=== PATIENT | female | born 1980 | race Caucasian/White ===

== ENCOUNTER 2017-10-06 18:46 | Emergency (ER) | payer MEDICAID ==
--- NOTE | 2017-10-06 19:34 | EDM.PDOC ---
ED HPI GENERAL MEDICAL PROBLEM - General Chief Complaint: General Stated Complaint: back pain Time Seen by Provider: 10/06/17 19:25 Source of Information: Reports: Patient, Family, RN History Limitations: Reports: No Limitations - History of Present Illness INITIAL COMMENTS - FREE TEXT/NARRATIVE: 37 yr female presents with upper back pain and numbness. States she takes medication for low back pain. Pt sitting with HOB elevated in no acute distress. States she fell and hurt her upper back at home. Onset: Today lower back Pain Score (Numeric/FACES): 8 - Related Data Allergies Allergy/AdvReac Type Severity Reaction Status Date / Time latex Allergy Itching Verified 10/06/17 19:35 morphine Allergy Nausea and Verified 10/06/17 19:35 Vomiting Home Meds: Home Meds Albuterol [Proventil HFA] 200 puff INH Q2H 10/06/17 [History] Baclofen 10 mg PO TID 10/06/17 [History] Cyanocobalamin (Vitamin B-12) [Vitamin B-12] 1,000 mcg PO DAILY 10/06/17 [ History] DULoxetine [Cymbalta] 30 mg PO ACBREAKFAST 10/06/17 [History] DULoxetine [Cymbalta] 60 mg PO BEDTIME 10/06/17 [History] Ferrous Sulfate [Iron] 325 mg PO DAILY 10/06/17 [History] Gabapentin [Neurontin] 900 mg PO QID 10/06/17 [History] Mv-Min/Iron/Folic/Calcium/Vitk [Women's Daily Formula Tablet] 1 each PO DAILY [History] hydrOXYzine HCl [Vistaril] 50 mg PO DAILY 10/06/17 [History] oxyCODONE 5 mg PO ASDIRECTED PRN 10/06/17 [History] ED ROS GENERAL - Review of Systems Review Of Systems: See Below Constitutional: Reports: Weakness HEENT: Reports: No Symptoms Respiratory: Reports: No Symptoms Cardiovascular: Reports: No Symptoms GI/Abdominal: Reports: No Symptoms, Other (BM this am, hx gastric bypass) : Reports: Other (hx hysterectomy) Musculoskeletal: Reports: Back Pain, Leg Pain Skin: Reports: No Symptoms Neurological: Reports: Dizziness, Weakness ED EXAM, GENERAL - Physical Exam Exam: See Below Exam Limited By: No Limitations General Appearance: Alert, No Apparent Distress Nose: Normal Inspection Throat/Mouth: Normal Lips Head: Atraumatic, Normocephalic Neck: Supple, Non-Tender Respiratory/Chest: No Respiratory Distress, Lungs Clear Cardiovascular: Regular Rate, Rhythm, No Edema GI/Abdominal: Normal Bowel Sounds, Soft, Non-Tender Back Exam: Paraspinal Tenderness Extremities: Normal Inspection, No Pedal Edema Neurological: Alert, Oriented Psychiatric: Normal Affect, Normal Mood Skin Exam: Warm, Dry, Normal Color Lymphatic: No Adenopathy Course - Vital Signs Last Recorded V/S: Last Vital Signs Temp 98.2 F 10/06/17 19:36 Pulse 93 10/06/17 19:36 Resp 20 10/06/17 19:36 BP 97/56 L 10/06/17 19:36 Pulse Ox 100 10/06/17 19:36 - Orders/Labs/Meds Labs: Laboratory Tests 10/06/17 10/06/17 10/06/17 Range/Units 19:35 19:35 19:35 WBC 7.9 D (4.0-11.0) K/uL RBC 3.92 (3.80-5.80) M/uL Hgb 8.9 L (11.5-16.5) g/dL Hct 29.2 L (37.0-47.0) % MCV 75 L (76-96) fL MCH 22.7 L (27.0-32.0) pg MCHC 30.5 L (31.0-35.0) g/dL RDW 17.7 H (11.0-16.0) % Plt Count 429 (150-500) K/uL MPV 8.9 (6.0-10.0) fL Neut % (Auto) 55.4 (45.0-70.0) % Lymph % (Auto) 33.4 (20.0-40.0) % Mcintosh % (Auto) 8.6 (3.0-10.0) % Eos % (Auto) 2.3 (1.0-5.0) % Baso % (Auto) 0.3 (0.0-0.5) % Neut # (Auto) 4.38 (2.00-7.50) K/uL Lymph # (Auto) 2.64 (1.50-4.00) K/uL Mcintosh # (Auto) 0.68 (0.20-0.80) K/uL Eos # (Auto) 0.18 (0.04-0.40) K/uL Baso # (Auto) 0.02 (0.02-0.10) K/uL Sodium 144 (136-145) mmol/L Potassium 3.9 (3.5-5.1) mmol/L Chloride 109 H (98-107) mmol/L Carbon Dioxide 25.6 (21.0-32.0) mmol/L Anion Gap 13.3 (5.0-15.0) mmol/L BUN 17 D (8-26) mg/dL Creatinine 0.57 (0.55-1.02) mg/dL Est Cr Clr Drug Dosing 119.24 mL/min Estimated GFR (MDRD) > 60 (>60) MLS/MIN BUN/Creatinine Ratio 29.8 H (6-25) Glucose 104 H (74-100) mg/dL Calcium 8.5 (8.5-10.1) mg/dL Total Bilirubin 0.1 D (0.0-1.0) mg/dL AST 24 (15-37) U/L ALT 25 (12-78) U/L Alkaline Phosphatase 93 (46-116) U/L Total Protein 6.8 (6.4-8.2) g/dL Albumin 3.4 (3.4-5.0) g/dL Globulin 3.4 (2.2-4.2) g/dL Albumin/Globulin Ratio 1.0 (0.8-2.0) TSH, Ultra Sensitive 0.548 D (0.358-3.740) uIU/mL - Re-Assessments/Exams Free Text/Narrative Re-Assessment/Exam: 10/06/17 20:22 Review of lab results. low hgb noted and reviewed with pt. Recommend rest, hydration, change position slowly, be aware of dizziness, use heat/ice to back for comfort. Will give Toradol 30 mg IM for relief of pain. Pt to follow-up with PCP tomorrow for pain. She has met with a neurosurgeon and is expecting spinal fusion. She does have iron, B12, and folic acid and multi-vitamin at home. Continue with these to build up blood before surgery. 10/06/17 20:28 Results of MRI noted and reviewed with pt. Degenerative disc disease noted. D.ischarge to home, ambulatory Departure - Departure Time of Disposition: 20:29 Disposition: Home, Self-Care 01 Condition: Good Clinical Impression: Pain - Discharge Information Referrals: PCP,None [Primary Care Provider] - Forms: ED Department Discharge
[2017-10-06] MEDS ORDERED: Ketorolac 30 MG/ML SDV ONE (20:25)
== END 2017-10-06 20:29 | disposition home or self-care (01) ==
LOC: LB.ED 18:46
DX: M54.6 Pain in thoracic spine (principal); M54.5 Low back pain; Z79.899 Other long term (current) drug therapy; Z88.5 Allergy status to narcotic agent; Z91.040 Latex allergy status; W19.XXXA Unspecified fall, initial encounter; Y92.009 Unspecified place in unspecified non-institutional (private) residence as the place of occurrence of the external cause
CPT/HCPCS: 36415; 80053; 84443; 85025; 99282; 99283; J1885

== ENCOUNTER 2017-10-08 19:09 | Emergency (ER) | payer MEDICAID ==
[2017-10-08] MEDS ORDERED: HYDROmorphone 2 MG/ML Syringe IVPUSH PRN (20:14)
[2017-10-08] MEDS ORDERED: Ketorolac 30 MG/ML SDV IVPUSH ONE (20:15)
--- NOTE | 2017-10-08 21:04 | EDM.PDOC ---
ED HPI GENERAL MEDICAL PROBLEM - General Chief Complaint: General Stated Complaint: BACK PAIN Time Seen by Provider: 10/08/17 19:20 Source of Information: Reports: Patient History Limitations: Reports: No Limitations - History of Present Illness INITIAL COMMENTS - FREE TEXT/NARRATIVE: According to patient she claims that she has been having low back pain for past 1 wk now. Pain is all over her lower back . She claims that she is numb from her waist all the way down to the right foot. She claims this has been going on for 1 wk. She is from around [place] and her PCP and her neuro surgeon are in [place]. She claims that she had incontinence of urine few weeks ago and she is not sure why., but now feels fine.She did get MRI done on 10/05/17 and was seen in the emergency room here for the same symptoms. She was given toradol and that i not helping. Her primary care provider has her on oxycodone 5mg 3-4 times daily and it is not helping her. She has a copy of her Lumbar MRI and claims her MRI has been seen by 3 neurosurgeons in [place] and they all have recommended surgery for her. Duration: Week(s): (1wk ) Treatments DEEP SEA DIVER: Reports: Acetaminophen - Related Data Allergies Allergy/AdvReac Type Severity Reaction Status Date / Time diphenhydramine Allergy Seizure Verified 10/08/17 19:55 [From Benadryl] latex Allergy Itching Verified 10/08/17 19:54 morphine Allergy Nausea and Verified 10/08/17 19:54 Vomiting Home Meds: Home Meds Albuterol [Proventil HFA] 200 puff INH Q2H 10/06/17 [History] Baclofen 10 mg PO TID 10/06/17 [History] Cyanocobalamin (Vitamin B-12) [Vitamin B-12] 1,000 mcg PO DAILY 10/06/17 [ History] Ferrous Sulfate [Iron] 325 mg PO DAILY 10/06/17 [History] Gabapentin [Neurontin] 900 mg PO QID 10/06/17 [History] Mv-Min/Iron/Folic/Calcium/Vitk [Women's Daily Formula Tablet] 1 each PO DAILY [History] hydrOXYzine HCl [Vistaril] 50 mg PO DAILY 10/06/17 [History] oxyCODONE 5 mg PO ASDIRECTED PRN 10/06/17 [History] Past Medical History Respiratory History: Reports: Asthma Gastrointestinal History: Reports: Bowel Obstruction Musculoskeletal History: Reports: Back Pain, Chronic Psychiatric History: Reports: Anxiety - Past Surgical History Respiratory Surgical History: Reports: None GI Surgical History: Reports: Bariatric Procedure, Cholecystectomy Female Surgical History: Reports: Section, Hysterectomy, Oophorectomy, Tubal Ligation Musculoskeletal Surgical History: Reports: Other (See Below) Other Musculoskeletal Surgeries/Procedures:: Screws in her (R) ankle and mark in her (R) knee ED ROS GENERAL - Review of Systems Review Of Systems: See Below Constitutional: Denies: Fever, Chills HEENT: Denies: Rhinitis, Sinus Problem, Throat Pain Respiratory: Denies: Shortness of Breath, Wheezing, Cough, Sputum Cardiovascular: Denies: Chest Pain, Lightheadedness GI/Abdominal: Denies: Abdominal Pain, Nausea, Vomiting : Denies: Dysuria, Flank Pain Musculoskeletal: Reports: Back Pain. Denies: Shoulder Pain, Joint Pain, Joint Swelling Skin: Denies: Pruritis, Rash Neurological: Denies: Confusion, Dizziness, Seizure, Difficulty Walking ED EXAM, GENERAL - Physical Exam Exam: See Below Exam Limited By: No Limitations General Appearance: Alert, WD/WN, No Apparent Distress, Other (Pt is over- reactive to pain) Eye Exam: Bilateral Eye: EOMI, PERRL Ears: Normal External Exam, Normal Canal, Hearing Grossly Normal, Normal TMs Ear Exam: Bilateral Ear: Auricle Normal, Canal Normal, TM normal Nose: Normal Inspection, Normal Mucosa, No Blood Throat/Mouth: Normal Inspection, Normal Lips, Normal Teeth, Normal Gums, Normal Oropharynx, Normal Voice, No Airway Compromise Head: Atraumatic, Normocephalic Neck: Normal Inspection, Supple, Non-Tender, Full Range of Motion Respiratory/Chest: No Respiratory Distress, Lungs Clear, Normal Breath Sounds, No Accessory Muscle Use, Chest Non-Tender Cardiovascular: Normal Peripheral Pulses, Regular Rate, Rhythm, No Edema, No Gallop, No JVD, No Murmur, No Rub Back Exam: Normal Inspection, Full Range of Motion, Paraspinal Tenderness (all over the lumbar region, exaggerated pain response even to touch.), Vertebral Tenderness (tender all over spinous). No: CVA Tenderness (R), CVA Tenderness (L ) Course - Vital Signs Text/Narrative:: Pt's MRi of the lumbar spine degenerative disc disease. there is neuronal foraminal stenosis at different level. there is no nerve entrapment or compression seen. But her neurosurgeon has told her that she has nerve compression( which might be true, per her neuro surgeon). On clinical exam she is able to stand up and walk. she has good strength in her great toe flexion and extension. hard to evaluate reflexes due to tense feeling of the lower extremity muscles. Pt claims she is on oxycodone and it is not helping. She receive Dilaudid 1mgg and toradol 30mg IM. I have advised patient to alternate her oxycodone with tylenol, 650mg every 4 hrs. If she simpson develop difficulty walking, saddle numbness or incontinence of urine or stool needs to come back to emergency room. Other ritter advised to followup with her primary care physician and her neurosurgeon on wednesday for futher care of her tawnya pain. Pt understand and agrees to the plan. Last Recorded V/S: Last Vital Signs Temp 98.1 F 10/08/17 19:50 Pulse 97 10/08/17 19:50 Resp 12 10/08/17 19:50 BP 122/71 10/08/17 19:50 Pulse Ox 100 10/08/17 19:50 - Orders/Labs/Meds Orders: Active Orders 24 hr Category Date Time Status HYDROmorphone [Dilaudid] Med 10/08/17 20:14 Active 1 mg IVPUSH Q2H PRN Medication Orders Hydromorphone HCl (Dilaudid) 1 mg IVPUSH Q2H PRN PRN Reason: PAIN Last Admin: 10/08/17 20:23 Dose: 1 mg Meds: Medications Generic Name Dose Route Start Last Admin Trade Name Freq PRN Reason Stop Dose Admin Hydromorphone HCl 1 mg 10/08/17 20:14 10/08/17 20:23 Dilaudid IVPUSH 1 mg Q2H PRN Administration PAIN Discontinued Medications Generic Name Dose Route Start Last Admin Trade Name Freq PRN Reason Stop Dose Admin Ketorolac Tromethamine 30 mg 10/08/17 20:15 10/08/17 20:23 Toradol IVPUSH 10/08/17 20:16 30 mg ONETIME ONE Administration Departure - Departure Time of Disposition: 19:30 Disposition: Home, Self-Care 01 Condition: Fair Clinical Impression: Degenerative arthritis of lumbar spine - Discharge Information Instructions: Back Pain, Adult Forms: ED Department Discharge Additional Instructions: Follow up with your primary care provider and neurosurgeon on Wednesday. Alternate Tylenol 650 mg and oxycodone every 4 hours as needed for pain. Use intermittent heat to the back. If you being to have incontinence of stool or urine return to the emergency room immediately. - Problem List & Annotations (1) Degenerative arthritis of lumbar spine Status: Acute Current Visit: Yes - Problem List Review Problem List Initiated/Reviewed/Updated: Yes - My Orders Last 24 Hours: My Active Orders 10/08/17 20:14 HYDROmorphone [Dilaudid] 1 mg IVPUSH Q2H PRN - Assessment/Plan Last 24 Hours: My Active Orders 10/08/17 20:14 HYDROmorphone [Dilaudid] 1 mg IVPUSH Q2H PRN Assessment:: Lumbar DSD Plan: Pt's MRi of the lumbar spine degenerative disc disease. there is neuronal foraminal stenosis at different level. there is no nerve entrapment or compression seen. But her neurosurgeon has told her that she has nerve compression( which might be true, per her neuro surgeon). On clinical exam she is able to stand up and walk. she has good strength in her great toe flexion and extension. hard to evaluate reflexes due to tense feeling of the lower extremity muscles. Pt claims she is on oxycodone and it is not helping. She receive Dilaudid 1mgg and toradol 30mg IM. I have advised patient to alternate her oxycodone with tylenol, 650mg every 4 hrs. If she simpson develop difficulty walking, saddle numbness or incontinence of urine or stool needs to come back to emergency room. Other ritter advised to followup with her primary care physician and her neurosurgeon on wednesday for futher care of her tawnya pain. Pt understand and agrees to the plan.
== END 2017-10-08 20:35 | disposition home or self-care (01) ==
LOC: LB.ED 19:09
DX: M47.816 Spondylosis without myelopathy or radiculopathy, lumbar region (principal); Z88.5 Allergy status to narcotic agent; Z88.8 Allergy status to other drugs, medicaments and biological substances; Z79.899 Other long term (current) drug therapy
CPT/HCPCS: 96374; 96375; 99283; J1170; J1885; 99284

== ENCOUNTER 2017-11-19 00:15 | Emergency (ER) | payer MEDICAID ==
[2017-11-19] MEDS ORDERED: HYDROmorphone 2 MG/ML Syringe IVPUSH ONE (00:48)
[2017-11-19] MEDS ORDERED: HYDROmorphone 2 MG/ML Syringe ONE (01:05)
--- NOTE | 2017-11-19 09:32 | ER ---
HISTORY OF PRESENT ILLNESS: 37-year-old female here with her with complaints of chest pain from the midsternal area that seems to radiate back between the shoulder blades. The patient states it started yesterday. It seems to be slowly getting worse. She has not been coughing. She denies any falls or injuries. She has not been sick. She rates the pain at 7 or 8/10. She states it feels the best when she sits up and holds her knees against her chest with her arms. The patient does have history of fibromyalgia. She is also status post gastric bypass and has had some issues with being anemic. OBJECTIVE: GENERAL APPEARANCE: The patient is awake and alert, in no obvious distress. VITAL SIGNS: Reviewed. They are normal. HEENT: Oral mucous membranes are moist. Tonsils not enlarged or injected. Pharynx not inflamed. NECK: Supple. LUNGS: Clear. Deep breathing does cause some mild chest discomfort, both anterior and posteriorly. I can reproduce pain pushing on the posterior chest wall between the shoulder blades as well. CARDIAC: Heart sounds distinct. S1, S2 present. Regular rate. No murmurs. SKIN: Warm and dry. LABORATORY DATA AND X-RAY: CBC shows a hemoglobin of 8.5, which is just slightly less than her most recent hemoglobin. The patient states she has not been doing very good at taking her supplemental iron tablet. CMP is unremarkable. Troponin is normal. EKG is obtained and is normal. Chest CT is negative. DIAGNOSES: 1. Pleuritic chest pain. 2. Secondary diagnosis, anemia, which I believe is chronic in nature. TREATMENT PLAN: The patient was given Dilaudid 1 mg IV here in the emergency room and I brought her pain down to about a 4/10. She is comfortable. We will give her a few Codorus tablets to take as needed. I do want the patient to follow up in the clinic early next week for recheck. She states she really does not have a primary care provider. I advised patient to establish care with a primary care provider. She does see a neurologist in [place], Dr. Campbell for other issues and I want the patient to increase her ferrous sulfate to 2 or 3 times a day at this point. The patient has no further questions. CRS/MODL /[id number]
--- NOTE | 2017-11-22 22:39 | CT ---
DATE OF SERVICE: 11/19/2017 CLINICAL DATA: Chest pain. ENHANCED CHEST CT: Multislice acquisition through the chest with IV contrast was performed. No priors. No evidence of PE. No pneumothorax. No pleural effusions. No aortic aneurysm or dissection. The lungs are clear. The heart size is normal. No significant pericardial effusion. No hilar or mediastinal adenopathy. The patient is status post prior cholecystectomy. There are also surgical changes involving the stomach. IMPRESSION: No acute abnormalities. [id number] [facility]
== END 2017-11-19 02:24 | disposition home or self-care (01) ==
LOC: LB.ED 00:15
DX: R07.81 Pleurodynia (principal); D64.9 Anemia, unspecified; Z98.84 Bariatric surgery status
CPT/HCPCS: 71260; 80053; 82150; 83690; 84484; 85025; 93005; 96374; 99285; J1170; 99284

== ENCOUNTER 2018-07-22 12:37 | Emergency (ER) | payer MEDICAID ==
[2018-07-22] MEDS ORDERED: Lactated Ringers 1,000 ML IV ONE (12:55)
--- NOTE | 2018-07-22 14:43 | EDM.PDOC ---
ED HPI GENERAL MEDICAL PROBLEM - General Stated Complaint: PASSED OUT Time Seen by Provider: 07/22/18 12:55 Source of Information: Reports: Patient History Limitations: Reports: No Limitations - History of Present Illness INITIAL COMMENTS - FREE TEXT/NARRATIVE: This is a 38yo who passed out today about 1045 for 15-20s per the significant other. She has passed out in the past with prior diagnoses of anemia and hypoglycemia. She has had prior workup and does see a neurologist. Patient denies current complaints but does feel nauseated. She states she has felt this way since yesterday morning. She has been working a lot more and had breakfast at 11 am after her episode and did not have anything to eat since last night. Onset: Sudden Duration: Resolved Prior to Arrival Location: Reports: Generalized - Related Data Allergies Allergy/AdvReac Type Severity Reaction Status Date / Time diphenhydramine Allergy Seizure Verified 07/22/18 14:03 [From Benadryl] ibuprofen Allergy Vomiting Verified 07/22/18 14:03 latex Allergy Itching Verified 07/22/18 14:03 morphine Allergy Nausea and Verified 07/22/18 14:03 Vomiting Home Meds: Home Meds Albuterol [Proventil HFA] 200 puff INH Q2H PRN 10/06/17 [History] Baclofen 10 mg PO TID 10/06/17 [History] Cyanocobalamin (Vitamin B-12) [Vitamin B-12] 1,000 mcg PO DAILY 10/06/17 [ History] Ferrous Sulfate [Iron] 325 mg PO DAILY 10/06/17 [History] Gabapentin [Neurontin] 900 mg PO QID 10/06/17 [History] Mv-Min/Iron/Folic/Calcium/Vitk [Women's Daily Formula Tablet] 1 each PO DAILY [History] hydrOXYzine HCl [Vistaril] 50 mg PO DAILY 10/06/17 [History] Past Medical History Respiratory History: Reports: Asthma Gastrointestinal History: Reports: Bowel Obstruction [employer] History: Reports: Endometriosis, Musculoskeletal History: Reports: Back Pain, Chronic Psychiatric History: Reports: Anxiety Hematologic History: Reports: Anemia, B12 Deficiency, Blood Transfusion(s) - Past Surgical History Respiratory Surgical History: Reports: None GI Surgical History: Reports: Bariatric Procedure, Cholecystectomy, Other (See Below) Other GI Surgeries/Procedures: surgery to fix bowel obstruction Female Surgical History: Reports: Section, Hysterectomy, Oophorectomy, Tubal Ligation Musculoskeletal Surgical History: Reports: Other (See Below) Other Musculoskeletal Surgeries/Procedures:: Screws in her (R) ankle and mark in her (R) knee ED ROS GENERAL - Review of Systems Review Of Systems: ROS reveals no pertinent complaints other than HPI. - Physical Exam Exam: See Below Exam Limited By: No Limitations General Appearance: Alert, WD/WN, No Apparent Distress Eye Exam: Bilateral Eye: EOMI, PERRL Ears: Normal External Exam Nose: Normal Inspection Throat/Mouth: Normal Inspection Head Exam: Atraumatic, Normocephalic Neck: Normal Inspection Respiratory/Chest: No Respiratory Distress, Lungs Clear, Normal Breath Sounds Cardiovascular: Normal Peripheral Pulses, Regular Rate, Rhythm GI/Abdominal: Normal Bowel Sounds Course - Orders/Labs/Meds Orders: Active Orders 24 hr Category Date Time Status EKG Documentation Completion [RC] ASDIRECTED Care 07/22/18 13:14 Ordered Head wo Cont [CT] Stat Exams 07/22/18 13:14 Ordered Labs: Laboratory Tests 07/22/18 07/22/18 07/22/18 Range/Units 13:15 13:15 14:12 WBC 6.9 D (4.0-11.0) K/uL RBC 4.11 (3.80-5.80) M/uL Hgb 9.1 L (11.5-16.5) g/dL Hct 30.3 L (37.0-47.0) % MCV 74 L (76-96) fL MCH 22.1 L (27.0-32.0) pg MCHC 30.0 L (31.0-35.0) g/dL RDW 18.9 H (11.0-16.0) % Plt Count 341 (150-500) K/uL MPV 8.7 (6.0-10.0) fL Neut % (Auto) 62.2 (45.0-70.0) % Lymph % (Auto) 26.3 (20.0-40.0) % [place] % (Auto) 8.5 (3.0-10.0) % Eos % (Auto) 2.6 (1.0-5.0) % Baso % (Auto) 0.4 (0.0-0.5) % Neut # (Auto) 4.30 (2.00-7.50) K/uL Lymph # (Auto) 1.82 (1.50-4.00) K/uL [place] # (Auto) 0.59 (0.20-0.80) K/uL Eos # (Auto) 0.18 (0.04-0.40) K/uL Baso # (Auto) 0.03 (0.02-0.10) K/uL Sodium 140 (136-145) mmol/L Potassium 3.9 (3.5-5.1) mmol/L Chloride 109 H (98-107) mmol/L Carbon Dioxide 22.0 (21.0-32.0) mmol/L Anion Gap 12.9 (5.0-15.0) mmol/L BUN 10 D (8-26) mg/dL Creatinine 0.63 (0.55-1.02) mg/dL Est Cr Clr Drug Dosing TNP Estimated GFR (MDRD) > 60 (>60) MLS/MIN BUN/Creatinine Ratio 15.9 (6-25) Glucose 91 (74-100) mg/dL Calcium 7.7 L (8.5-10.1) mg/dL Total Bilirubin 0.2 (0.0-1.0) mg/dL AST 24 (15-37) U/L ALT 32 (12-78) U/L Alkaline Phosphatase 89 (46-116) U/L Troponin I < 0.017 (0.000-0.060) ng/mL Total Protein 6.1 L (6.4-8.2) g/dL Albumin 3.0 L (3.4-5.0) g/dL Globulin 3.1 (2.2-4.2) g/dL Albumin/Globulin Ratio 1.0 (0.8-2.0) TSH, Ultra Sensitive 0.597 (0.358-3.740) uIU/mL Urine Color Yellow Urine Appearance Clear (CLEAR) Urine pH 6.5 (5.0-8.0) Ur Specific [place] 1.020 (1.003-1.030) Urine Protein Negative (NEGATIVE) mg/dL Urine Glucose (UA) Negative (NEGATIVE) mg/dL Urine Ketones Negative (NEGATIVE) mg/dL Urine Occult Blood Negative (NEGATIVE) Urine Nitrite Negative (NEGATIVE) Urine Bilirubin Negative (NEGATIVE) Urine Urobilinogen 0.2 (0.2-1.0) E.U./dL Ur Leukocyte Esterase Negative (NEGATIVE) Urine RBC Not seen /HPF Urine WBC Not seen /HPF Ur Squamous Epith Cells Moderate /HPF Urine Bacteria Rare /HPF Departure - Departure Time of Disposition: 14:30 Disposition: Home, Self-Care 01 Condition: Good Clinical Impression: Hypoglycemia Anemia Qualifiers: Anemia type: iron deficiency Iron deficiency anemia type: other iron deficiency Qualified Code(s): D50.8 - Other iron deficiency anemias - Discharge Information Instructions: Anemia Referrals: PCP,None [Primary Care Provider] - Forms: ED Department Discharge Additional Instructions: Wear holter monitor for 2 weeks then mail back in box it came in. Continue taking vitamins and iron as routinely done and ordered since gastric by pass surgery. Return to clinic or ER if any other c/o. Care Plan Goals: ED HPI GENERAL MEDICAL PROBLEM - General Stated Complaint: PASSED OUT Time Seen by Provider: 07/22/18 12:55 Source of Information: Reports: Patient History Limitations: Reports: No Limitations - History of Present Illness INITIAL COMMENTS - FREE TEXT/NARRATIVE: This is a 38yo who passed out today about 1045 for 15-20s per the significant other. She has passed out in the past with prior diagnoses of anemia and hypoglycemia. She has had prior workup and does see a neurologist. Patient denies current complaints but does feel nauseated. She states she has felt this way since yesterday morning. She has been working a lot more and had breakfast at 11 am after her episode and did not have anything to eat since last night. Onset: Sudden Duration: Resolved Prior to Arrival Location: Reports: Generalized - Related Data Allergies Allergy/AdvReac Type Severity Reaction Status Date / Time diphenhydramine Allergy Seizure Verified 07/22/18 14:03 [From Benadryl] ibuprofen Allergy Vomiting Verified 07/22/18 14:03 latex Allergy Itching Verified 07/22/18 14:03 morphine Allergy Nausea and Verified 07/22/18 14:03 Vomiting Home Meds: Home Meds Albuterol [Proventil HFA] 200 puff INH Q2H PRN 10/06/17 [History] Baclofen 10 mg PO TID 10/06/17 [History] Cyanocobalamin (Vitamin B-12) [Vitamin B-12] 1,000 mcg PO DAILY 10/06/17 [ History] Ferrous Sulfate [Iron] 325 mg PO DAILY 10/06/17 [History] Gabapentin [Neurontin] 900 mg PO QID 10/06/17 [History] Mv-Min/Iron/Folic/Calcium/Vitk [Women's Daily Formula Tablet] 1 each PO DAILY [History] hydrOXYzine HCl [Vistaril] 50 mg PO DAILY 10/06/17 [History] Past Medical History Respiratory History: Reports: Asthma Gastrointestinal History: Reports: Bowel Obstruction [employer] History: Reports: Endometriosis, Musculoskeletal History: Reports: Back Pain, Chronic Psychiatric History: Reports: Anxiety Hematologic History: Reports: Anemia, B12 Deficiency, Blood Transfusion(s) - Past Surgical History Respiratory Surgical History: Reports: None GI Surgical History: Reports: Bariatric Procedure, Cholecystectomy, Other (See Below) Other GI Surgeries/Procedures: surgery to fix bowel obstruction Female Surgical History: Reports: Section, Hysterectomy, Oophorectomy, Tubal Ligation Musculoskeletal Surgical History: Reports: Other (See Below) Other Musculoskeletal Surgeries/Procedures:: Screws in her (R) ankle and mark in her (R) knee ED ROS GENERAL - Review of Systems Review Of Systems: ROS reveals no pertinent complaints other than HPI. - Physical Exam Exam: See Below Exam Limited By: No Limitations General Appearance: Alert, WD/WN, No Apparent Distress Eye Exam: Bilateral Eye: EOMI, PERRL Ears: Normal External Exam Nose: Normal Inspection Throat/Mouth: Normal Inspection Head Exam: Atraumatic, Normocephalic Neck: Normal Inspection Respiratory/Chest: No Respiratory Distress, Lungs Clear, Normal Breath Sounds Cardiovascular: Normal Peripheral Pulses, Regular Rate, Rhythm GI/Abdominal: Normal Bowel Sounds Course - Orders/Labs/Meds Orders: Active Orders 24 hr Category Date Time Status EKG Documentation Completion [RC] ASDIRECTED Care 07/22/18 13:14 Ordered Head wo Cont [CT] Stat Exams 07/22/18 13:14 Ordered Labs: Laboratory Tests 07/22/18 07/22/18 07/22/18 Range/Units 13:15 13:15 14:12 WBC 6.9 D (4.0-11.0) K/uL RBC 4.11 (3.80-5.80) M/uL Hgb 9.1 L (11.5-16.5) g/dL Hct 30.3 L (37.0-47.0) % MCV 74 L (76-96) fL MCH 22.1 L (27.0-32.0) pg MCHC 30.0 L (31.0-35.0) g/dL RDW 18.9 H (11.0-16.0) % Plt Count 341 (150-500) K/uL MPV 8.7 (6.0-10.0) fL Neut % (Auto) 62.2 (45.0-70.0) % Lymph % (Auto) 26.3 (20.0-40.0) % [place] % (Auto) 8.5 (3.0-10.0) % Eos % (Auto) 2.6 (1.0-5.0) % Baso % (Auto) 0.4 (0.0-0.5) % Neut # (Auto) 4.30 (2.00-7.50) K/uL Lymph # (Auto) 1.82 (1.50-4.00) K/uL [place] # (Auto) 0.59 (0.20-0.80) K/uL Eos # (Auto) 0.18 (0.04-0.40) K/uL Baso # (Auto) 0.03 (0.02-0.10) K/uL Sodium 140 (136-145) mmol/L Potassium 3.9 (3.5-5.1) mmol/L Chloride 109 H (98-107) mmol/L Carbon Dioxide 22.0 (21.0-32.0) mmol/L Anion Gap 12.9 (5.0-15.0) mmol/L BUN 10 D (8-26) mg/dL Creatinine 0.63 (0.55-1.02) mg/dL Est Cr Clr Drug Dosing TNP Estimated GFR (MDRD) > 60 (>60) MLS/MIN BUN/Creatinine Ratio 15.9 (6-25) Glucose 91 (74-100) mg/dL Calcium 7.7 L (8.5-10.1) mg/dL Total Bilirubin 0.2 (0.0-1.0) mg/dL AST 24 (15-37) U/L ALT 32 (12-78) U/L Alkaline Phosphatase 89 (46-116) U/L Troponin I < 0.017 (0.000-0.060) ng/mL Total Protein 6.1 L (6.4-8.2) g/dL Albumin 3.0 L (3.4-5.0) g/dL Globulin 3.1 (2.2-4.2) g/dL Albumin/Globulin Ratio 1.0 (0.8-2.0) TSH, Ultra Sensitive 0.597 (0.358-3.740) uIU/mL Urine Color Yellow Urine Appearance Clear (CLEAR) Urine pH 6.5 (5.0-8.0) Ur Specific [place] 1.020 (1.003-1.030) Urine Protein Negative (NEGATIVE) mg/dL Urine Glucose (UA) Negative (NEGATIVE) mg/dL Urine Ketones Negative (NEGATIVE) mg/dL Urine Occult Blood Negative (NEGATIVE) Urine Nitrite Negative (NEGATIVE) Urine Bilirubin Negative (NEGATIVE) Urine Urobilinogen 0.2 (0.2-1.0) E.U./dL Ur Leukocyte Esterase Negative (NEGATIVE) Urine RBC Not seen /HPF Urine WBC Not seen /HPF Ur Squamous Epith Cells Moderate /HPF Urine Bacteria Rare /HPF Departure - Departure Time of Disposition: 14:30 Disposition: Home, Self-Care 01 Condition: Good Clinical Impression: Hypoglycemia Anemia Qualifiers: Anemia type: iron deficiency Iron deficiency anemia type: other iron deficiency Qualified Code(s): D50.8 - Other iron deficiency anemias - Discharge Information Instructions: Anemia Referrals: PCP,None [Primary Care Provider] - Forms: ED Department Discharge Additional Instructions: Wear holter monitor for 2 weeks then mail back in box it came in. Continue taking vitamins and iron as routinely done and ordered since gastric by pass surgery. Return to clinic or ER if any other c/o. - My Orders Last 24 Hours: My Active Orders 07/22/18 13:14 EKG Documentation Completion [RC] ASDIRECTED Head wo Cont [CT] Stat - Assessment/Plan Last 24 Hours: My Active Orders 07/22/18 13:14 EKG Documentation Completion [RC] ASDIRECTED Head wo Cont [CT] Stat Counseled on close monitoring and f/u. Discussed f/u with Neurology for further workup. Patient did have a juanito - Problem List & Annotations (1) Hypoglycemia SNOMED Code(s): 422089190 Code(s): E16.2 - HYPOGLYCEMIA, UNSPECIFIED Status: Acute (2) Anemia SNOMED Code(s): 259573769 Code(s): D64.9 - ANEMIA, UNSPECIFIED Status: Chronic Onset Date: ~ Annotation/Comment:: 11/19/17 - 1. Pleuritic chest pain, 2. Secondary diagnosis, anemia, which I believe is chronic in nature. Qualifiers: Anemia type: iron deficiency Iron deficiency anemia type: other iron deficiency Qualified Code(s): D50.8 - Other iron deficiency anemias - Problem List Review Problem List Initiated/Reviewed/Updated: Yes - My Orders Last 24 Hours: My Active Orders 07/22/18 13:14 EKG Documentation Completion [RC] ASDIRECTED Head wo Cont [CT] Stat - Assessment/Plan Last 24 Hours: My Active Orders 07/22/18 13:14 EKG Documentation Completion [RC] ASDIRECTED Head wo Cont [CT] Stat Plan: Counseled on close f/u and monitoring of symptoms. Discussed f/u with Neurology and continued monitoring of hypoglycemia and supplementation with iron. F/u with PCP in the next few days.
--- NOTE | 2018-07-22 17:08 | CT ---
DATE OF SERVICE: 07/22/18 CLINICAL DATA: syncope UNENHANCED BRAIN CT: Multislice acquisition through the brain without IV contrast was performed. Comparison is made to a prior exam dated 09/21/17. No masses or mass effect. No intracranial hemorrhage. No evidence of acute or subdural infarct. No changes from the prior study. IMPRESSION: No acute intracranial abnormalities. [id number] [facility] [place]
== END 2018-07-22 14:13 | disposition home or self-care (01) ==
LOC: LB.ED 12:37
DX: E16.2 Hypoglycemia, unspecified (principal); D50.8 Other iron deficiency anemias; Z88.6 Allergy status to analgesic agent; Z88.5 Allergy status to narcotic agent; Z91.040 Latex allergy status; Z88.8 Allergy status to other drugs, medicaments and biological substances; Z79.899 Other long term (current) drug therapy
CPT/HCPCS: 0296T; 0297T; 36415; 70450; 80053; 81001; 84443; 84484; 85025; 93005; 99285-25; J7120